=== PATIENT | female | born 1975 | race Caucasian/White ===

== ENCOUNTER → 2017-03-17 | Outpatient (CLI) | payer SELFPAY ==
[~2017-03-17] VITALS: Ht 175.3 cm; Wt 73.9 kg
[~2017-03-17] MED LIST: ACHD5005 PO; DCS100C PO; FERR-57 PO; IBP600T1 PO; LIDOCAINE 1% INJ 20 ML (XYLOCAINE) VIAL INJ ONE; LIDOCAINE 1% INJ 20 ML (XYLOCAINE) VIAL ONE; ONDN4T PO; PREN-107 PO; ZOFRAN
[2017-03-17 12:32] VITALS: BP 112/70
[2017-03-17 12:55] VITALS: BP 118/71
--- NOTE | 2017-03-17 13:35 | Diagnostic Imaging Report ---
INDICATION: Ultrasound-guided aspiration. TECHNIQUE AND FINDINGS: Patient's left groin was prepped and draped utilizing maximal sterile barrier technique. Local anesthesia was obtained with 2% lidocaine. Needle was advanced into the left groin fluid collection under ultrasound guidance. Approximately 1 to 2 cc of yellow serous fluid was aspirated and sent to pathology for cytological evaluation. Following receipt, the needle was removed and adequate hemostasis was obtained. Patient tolerated the procedure well and left the department in stable condition. IMPRESSION: Successful ultrasound-guided aspiration as described. Dictated by: Dictated on workstation # [id number]
--- NOTE | 2017-03-17 13:39 | Diagnostic Imaging Report ---
INDICATION: Left groin mass. TECHNIQUE: Limited real-time grayscale images are obtained over the left groin in various projections. FINDINGS: There is a anechoic cystic area in the left groin just medial to the vessels measuring 1.4 x 1.1 x 2.9 cm. There appears to be adjacent reactive appearing lymph node measuring 3 x 1.3 x 1.6 cm. No other discrete solid or cystic masses appreciated. IMPRESSION: Generally benign-appearing cystic area in the left groin of uncertain etiology. This has appearance of a seroma. This can be aspirated via ultrasound guidance if clinically warranted. Additionally there is some reactive appearing adenopathy. Dictated by: Dictated on workstation # [id number]
== END ==
LOC: RAD 12:19
PROVIDERS: ATTEND Surgery
DX: R22.2 Localized swelling, mass and lump, trunk (principal)
CPT/HCPCS: 76881; 76942

== ENCOUNTER → 2017-09-28 | Outpatient (CLI) | payer OTHER ==
[~2017-09-28] MED LIST changes: -LIDOCAINE 1% INJ 20 ML (XYLOCAINE) VIAL INJ ONE; -LIDOCAINE 1% INJ 20 ML (XYLOCAINE) VIAL ONE
--- NOTE | 2017-09-28 10:55 | Diagnostic Imaging Report ---
INDICATION: Left groin lump. COMPARISON: Comparison is made with prior exam from 03/17/2017. FINDINGS: Sonographic interrogation of left groin was performed. There is an ovoid cyst measuring 1.2 x 2.1 x 0.7 cm. This has been previously aspirated in March 2017. No internal vascularity is identified. IMPRESSION: Simple cystic mass in the left groin, likely a seroma. Dictated by: Dictated on workstation # [id number]
== END ==
LOC: RAD 10:10
PROVIDERS: ATTEND Surgery
DX: R19.09 Other intra-abdominal and pelvic swelling, mass and lump (principal)
CPT/HCPCS: 76881

== ENCOUNTER 2022-10-09 10:37 | Observation (INO) | payer OTHER ==
[~2022-10-09] VITALS: Ht 175.3 cm; Wt 58.1 kg
[2022-10-09 11:31] VITALS: BP 118/79
[2022-10-09] MEDS ORDERED: 1/2 NS IV SOLUTION 1,000 ML IV PRN (11:45)
[2022-10-09] MEDS ORDERED: LORazepam INJ 2 MG/ML (ATIVAN) VIAL IV PRN (11:45)
[2022-10-09] MEDS ORDERED: ANTACID SUSP 30 ML UDC (MYLANTA) PO PRN (11:45)
[2022-10-09] MEDS ORDERED: ENOXAPARIN 40 MG/0.4 ML (LOVENOX) SYR SC SCH (11:45)
[2022-10-09] MEDS ORDERED: D5 1/2 NS 1000 ML IV SOLUTION 1,000 ML IV PRN (11:45)
[2022-10-09] MEDS ORDERED: ONDANSETRON 4 MG (ZOFRAN) ORAL DISSOLVE TAB SL PRN (11:45)
[2022-10-09] MEDS ORDERED: ONDANSETRON 4 MG/2 ML (SDV) Z0FRAN IV PRN (11:45)
[2022-10-09] MEDS ORDERED: SENNA W/DOCUSATE (SENOKOT S) TABLET PO PRN (11:45)
[2022-10-09] MEDS ORDERED: LORazepam INJ 2 MG/ML (ATIVAN) VIAL IM/IV PRN (11:45)
[2022-10-09] MEDS ORDERED: LORazepam 1 MG (ATIVAN) TAB PO PRN (11:45)
--- NOTE | 2022-10-09 12:10 | History & Physical ---
HPI History of Present Illness: 47 yo with alcoholism has been trying to detox, last drink Thursday night. She has been going to clinic daily and getting Ativan, has gotten IVF in clinic, but today her legs weren't working well and she fell getting out of bed. Admits visual hallucinations, denies auditory hallucinations. Admits shakiness, anxious, nausea, vomiting, diarrhea, shortness of breath. Denies chest pain. Was drinking 12 pack per day previously. Has not quit drinking in years, did quit during week at that time and social drinking on weekend. Has not been to any specific treatment programs in the past. She states she was always feeling like crap and got tired of it, so wanted to quit drinking. Lives with her 2 children and a friend and her 2 children. Source: patient Date seen by provider: Oct 09, 2022 Time Seen by Provider: 12:08 Attending Physician Felicia Jeff DO PCP Admitting Physician: Kezia Contreras MD Attending Physician: Kezia Contreras MD Consult Date of Admission Oct 09, 2022 at 11:20 Home Medications Home Medications Reviewed patient Home Medication Reconciliation performed by pharmacy medication reconciliations tool grinding technician and/or nursing. Patients Allergies have been reviewed. Allergies Coded Allergies: No Known Drug Allergies (Unverified , 07/10/12) [id number] Hx Patient Social History Smoking Status: Never a Smoker Alcohol Use?: Yes (12 pack per day) Have you traveled recently?: No Immunizations Up To Date Tetanus Booster (TDap): Less than 5yrs Influenza Vaccine Up-to-Date: Yes; Up-to-Date COVID19 Vaccine Trimmer Tailer: moderna Past Medical History PMHx: Depression Anxiety SurgHx: Denies Review of Systems ([facility]) Constitutional: No fever EENTM: throat pain (recently treated for strep throat last week); No nose congestion Respiratory: No cough; short of breath Cardiovascular: No chest pain Gastrointestinal: No abdominal pain, No constipation; diarrhea, nausea, vomiting Genitourinary: No dysuria Musculoskeletal: No joint pain, No muscle pain Skin: No rash Psychiatric/Neurological: Anxiety, Depressed Physical Exam-([facility]) Physical Exam Vital Signs VS - Last 72 Hours, by Label 10/09/22 11:31 Temp 36.4 Pulse 69 Resp 20 B/P (MAP) 118/79 (92) Pulse Ox 98 O2 Delivery Room Air Capillary Refill : General Appearance: no apparent distress Respiratory: lungs clear, normal breath sounds Cardiovascular: regular rate, rhythm, no murmur Gastrointestinal: normal bowel sounds, non tender, soft Extremities: no pedal edema Neurologic/Psychiatric: alert, other (flat affect) Skin: normal color, warm/dry Assessment/Plan Assessment/Plan Admission Status: Observation (1) Alcohol withdrawal Status: Acute Assessment & Plan: Alcohol withdrawal protocol, ativan per CIWA. manager administrative services consult. Pt working with [facility], has appointment coming up with therapy. Check CBC, CMP Qualifiers: Qualified Codes: F10.932 - Alcohol use, unspecified with withdrawal with perceptual disturbance (2) Depression Status: Chronic Assessment & Plan: Resume home med Qualifiers: (3) Anxiety Status: Chronic (4) DVT prophylaxis Status: Acute Assessment & Plan: Enoxaparin KEZIA CONTRERAS MD Oct 09, 2022 12:10
[2022-10-09 12:22] LABS: BASOPHILS % (AUTO) 1 % (0-10); EOSINOPHILS % (AUTO) 1 % (0-10); HEMATOCRIT 36 % (35-52); HEMOGLOBIN 12.6 g/dL (11.5-16.0); LYMPHOCYTES # (AUTO) 0.9 10^3/uL (1.0-4.0); LYMPHOCYTES % (AUTO) 17 % (12-44); MEAN CORPUSCULAR HEMOGLOBIN 32 pg (25-34); MEAN CORPUSCULAR HGB CONC 35 g/dL (32-36); MEAN CORPUSCULAR VOLUME 93 fL (80-99); MEAN PLATELET VOLUME 9.3 fL (9.0-12.2); MONOCYTES # (AUTO) 0.4 10^3/uL (0.0-1.0); MONOCYTES % (AUTO) 7 % (0-12); NEUTROPHILS % (AUTO) 75 % (42-75); PLATELET COUNT 264 10^3/uL (130-400); WHITE BLOOD COUNT 5.4 10^3/uL (4.3-11.0)
[2022-10-09] MEDS: ENOXAPARIN INJECTION 30 MG/0.3 ML SYR SC SCH (12:36)
[2022-10-09] MEDS: D5 1/2 NS W/KCL 20 MEQ/L 1,000 ML IV SCH ×2 (12:36→17:48)
[2022-10-09 12:38] LABS: ALBUMIN 3.8 GM/DL (3.2-4.5); CHLORIDE 104 MMOL/L (98-107); POTASSIUM 3.5 MMOL/L (3.6-5.0); SODIUM 135 MMOL/L (135-145)
[2022-10-09 12:40] LABS: GLUCOSE 119 MG/DL (70-105); TOTAL PROTEIN 6.3 GM/DL (6.4-8.2)
[2022-10-09 12:41] LABS: CARBON DIOXIDE 24 MMOL/L (21-32)
[2022-10-09 12:42] LABS: BILIRUBIN,TOTAL 0.8 MG/DL (0.1-1.0)
[2022-10-09 12:44] LABS: ALKALINE PHOSPHATASE 43 U/L (40-136); CREATININE SERUM 0.78 MG/DL (0.60-1.30); GFR ESTIMATED 94
[2022-10-09 12:45] LABS: BUN/CREATININE RATIO 6
[2022-10-09 12:47] LABS: ALANINE AMINOTRANSFERASE 19 U/L (0-55)
[2022-10-09 12:49] LABS: INR 1.1 (0.8-1.4); PROTHROMBIN TIME PATIENT 14.2 SEC (12.2-14.7)
[2022-10-09] MEDS ORDERED: KCL 20 MEQ TAB (K-DUR) PO NR (13:30)
[2022-10-09 14:32] LABS: BILIRUBIN,URINE NEGATIVE (NEGATIVE); CLARITY,URINE CLEAR; COLOR,URINE YELLOW; GLUCOSE, URINE (UA) NEGATIVE (NEGATIVE); KETONES,URINE TRACE (NEGATIVE); LEUKOCYTE ESTERASE ,URINE NEGATIVE (NEGATIVE); NITRITE,URINE NEGATIVE (NEGATIVE); PH,URINE 6.5 (5-9); PROTEIN,URINE NEGATIVE (NEGATIVE)
[2022-10-09 14:40] LABS: AMORPHOUS SEDIMENT,UR RARE AMOR URATES /LPF; BACTERIA,URINE NEGATIVE /HPF; SQUAMOUS EPITHELIAL CELL,UR 0-2 /HPF
[2022-10-09 15:48] VITALS: BP 99/58
[2022-10-09 19:17] VITALS: BP 107/57
[2022-10-09] MEDS: MAGNESIUM OXIDE (MAG-OX)400 MG TAB PO SCH (20:50)
[2022-10-09 23:46] VITALS: BP 100/64
[2022-10-10] MEDS: D5 1/2 NS W/KCL 20 MEQ/L 1,000 ML IV SCH ×2 (01:28→08:04)
[2022-10-10 03:28] VITALS: BP 102/65
[2022-10-10 06:10] LABS: CALCIUM 8.7 MG/DL (8.5-10.1); CREATININE SERUM 0.72 MG/DL (0.60-1.30)
[2022-10-10] MEDS ORDERED: MULTIVIT W/MINERALS TAB (THERAGRAN M) PO SCH (07:00)
[2022-10-10] MEDS ORDERED: THIAMINE 100 MG (VITAMIN B-1) TAB PO SCH (07:00)
[2022-10-10 07:33] VITALS: BP 97/59
[2022-10-10] MEDS: MAGNESIUM OXIDE (MAG-OX)400 MG TAB PO SCH (08:04)
[2022-10-10] MEDS ORDERED: FOLIC ACID 1 MG TAB PO SCH (09:00)
[2022-10-10] MEDS ORDERED: TRZ50T PO (11:12)
[2022-10-10] MEDS ORDERED: LORA-407 PO (11:12)
[2022-10-10] MEDS ORDERED: ESCI20TA39 PO (11:12)
[2022-10-10] MEDS ORDERED: FOLI1TAB33 PO (11:12)
[2022-10-10] MEDS ORDERED: CYAN500T8 PO (11:12)
[2022-10-10] MEDS ORDERED: ELDE350C PO (11:12)
[2022-10-10] MEDS ORDERED: AMOX500C2 PO (11:12)
[2022-10-10] MEDS ORDERED: MULT-1106 PO (11:12)
[2022-10-10 11:30] VITALS: BP 121/72
[2022-10-10] MEDS: ENOXAPARIN INJECTION 30 MG/0.3 ML SYR SC SCH (11:36)
--- NOTE | 2022-10-10 14:48 | Discharge Summary ---
Discharge Summary Hospital Course Problems/Diagnosis: (1) Alcohol withdrawal Status: Acute Assessment & Plan: Alcohol withdrawal protocol, ativan per CIWA. Social se rvices consult. Pt working with [facility], has appointment coming up with therapy. CIWA decreased from 15 to 5 to 1 with one dose of IV ativan and she was stable and tolerating some diet on day of d/c. Has ativan at home if needed and appointment Thursday with Dr. Jin. Qualifiers: Qualified Codes: F10.932 - Alcohol use, unspecified with withdrawal with perceptual disturbance (2) Depression Status: Chronic Assessment & Plan: Resume home med Qualifiers: (3) Anxiety Status: Chronic Hospital Course Date of Admission: Oct 09, 2022 at 11:20 Admission Diagnosis : Family Physician/Provider: Radha Valencia Date of Discharge: 10/10/22 Discharge Diagnosis: See problem list Hospital Course: Pt admitted due to hallucinations, fall and weakness with severe alcohol withdrawal symptoms at home, unable to manage. Her last drink was Thursday night, October 05, so she did appear to be at the end of the worst, and on 10/10 was not requiring regular Ativan and was tolerating oral intake. Labs and Pending Lab Test: Laboratory Tests 10/09/22 17:23: Glucometer 128H 10/09/22 23:48: Glucometer 126H 10/10/22 05:20: Sodium Level 139, Potassium Level 4.0, Chloride Level 111H, Carbon Dioxide Level 21, Anion Gap 7, Blood Urea Nitrogen 3L, Creatinine 0.72, Estimat Glomerular Filtration Rate 104, BUN/Creatinine Ratio 4, Glucose Level 124H, Calcium Level 8.7 10/10/22 05:39: Glucometer 116H 10/10/22 11:27: Glucometer 98 Home Meds Active Reported One-Daily Multi-Vitamin (Multivitamin) 1 Each Tablet 1 Ea PO DAILY Elderberry (Elderberry Fruit) 350 Mg Capsule 350 Mg PO DAILY Escitalopram Oxalate 20 Mg Tablet 20 Mg PO HS Trazodone HCl 50 Mg Tablet 100 Mg PO HS TAKES 2 (50MG) TABS Ativan (Lorazepam) 2 Mg Tablet 2 Mg PO Q6H PRN Folic Acid 1 Mg Tablet 1 Mg PO DAILY Vitamin B-12 (Cyanocobalamin (Vitamin B-12)) 500 Mcg Tablet 500 Mg PO DAILY Assessment/Pt DC Instructions Follow up with Dr. Jin Thursday. Discharge Diet: No Restrictions Activity as Tolerated: Yes Discharge Physical Examination Allergies: Coded Allergies: No Known Drug Allergies (Unverified , 10/09/22) General Appearance: No Apparent Distress Respiratory: Lungs Clear, Normal Breath Sounds Cardiovascular: Regular Rate, Rhythm, No Murmur Gastrointestinal: Normal Bowel Sounds, Non Tender, Soft Extremity: No Pedal Edema Skin: Warm/Dry Neurologic/Psychiatric: Alert, Normal Mood/Affect, Other (no tremor) KEZIA NOBLE MD Oct 10, 2022 14:48
== END 2022-10-10 13:55 | disposition home or self-care (01) ==
LOC: 4TH 11:20 → INTOOBSV 11:20
PROVIDERS: ADMIT Family Medicine; ATTEND Family Medicine
DX: F10.932 Alcohol use, unspecified with withdrawal with perceptual disturbance (principal); F32.A Depression, unspecified; F41.9 Anxiety disorder, unspecified
CPT/HCPCS: 80048; 80053; 81000; 82947 ×2; 85025; 85610; 85730; 87389; 93005; 94760 ×2; 96372 ×2; 96374; G0378; G0379; G0480; 36415; 80320